=== PATIENT | male | born 1945 | race Caucasian/White ===

== ENCOUNTER 2018-06-05 13:09 | Outpatient (CLI) | payer MEDICARE, OTHER, SELFPAY ==
--- NOTE | 2018-06-05 12:59 | DI.RAD_ITS ---
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 There is a small rounded density projected over the left lower lobe which is likely calcified and represents an old healed granuloma. No mass is identified. No pleural effusion. The heart is enlarged. There is some questionable prominence of the upper lobe vasculature raising the possibility of pulmonary venous hypertension. A ligia cath is noted, the tip ending in the mid to distal superior vena cava. There are apparent old compression fractures involving the mid and lower dorsal spine. SUMMARY: Cardiomegaly, question pulmonary venous hypertension. No evidence of overt congestive failure or pneumonia.
== END 2018-06-05 13:29 ==
PROVIDERS: PCP Family Medicine; Visit Provider Nurse Practitioner Family
DX: C90.02 Multiple myeloma in relapse (principal); R06.2 Wheezing; R05 Cough
CPT/HCPCS: 71046

== ENCOUNTER 2018-06-07 00:43 | Outpatient (RCR) | payer MEDICARE, OTHER, SELFPAY ==
[2018-06-05] MEDS: Normal Saline Flush 10 ML SYR IVP ×2 (07:35→12:05)
[2018-06-05 07:54] LABS: Abs Immature Grans 0.01 k/cumm (0.0-0.09); Absolute Basophil Count 0.01 k/cumm (0.0-0.2); Absolute Eosinophil Count 0.06 k/cumm (0.0-0.7); Absolute Lymphocyte Count 1.79 k/cumm (1.2-3.4); Absolute Neutrophil Count 1.16 k/cumm (1.2-6.7); Basophils % 0.3; Eosinophils % 1.7; HCT 21.2 % (40.0-50.0); Immature Grans % 0.3; Lymphocytes % 52.2; Mean Corp. HGB Concentration 32.5 g/dL (32.0-36.0); Mean Corpuscular Hemoglobin 30.7 pg (27.0-33.0); Mean Corpuscular Volume 94.2 fL (80-95); Mean Platelet Volume 11.6 fL (8.0-11.0); Monocytes % 11.7; Neutrophils % 33.8; RBC 2.25 m/cumm (4.50-6.00); RBC Distribution Width 15.7 % (11.8-14.1); White Blood Cell Count 3.43 k/cumm (4.4-10.8)
[2018-06-05 08:08] LABS: ALT 50 U/L (12-78); AST 30 U/L (15-37); Albumin 2.8 g/dL (3.4-5.0); Alkaline Phosphatase 59 U/L (46-116); Anion Gap 14.4 mmol/L (3-11); BUN 27 mg/dL (7-18); Bilirubin, Total 0.7 mg/dL (0.2-1.0); CO2 22.6 mmol/L (21.0-32.0); CREATININE 0.99 mg/dL (0.70-1.30); Calcium 8.6 mg/dL (8.5-10.1); Chloride 100 mmol/L (98-107); Glucose 172 mg/dL (70-100); Potassium 4.3 mmol/L (3.5-5.1); Sodium 137 mmol/L (136-145); Total Protein 7.8 g/dL (6.4-8.2)
[2018-06-05 08:27] LABS: HGB 6.9 g/dL (13.5-17.5); Platelet Count 70 x1000/uL (130-400)
[2018-06-05 08:28] LABS: Anisocytosis 1+; Polychromasia Present
[2018-06-05] MEDS: Heparin 500 UNITS/5 ML SYRINGE IV (12:10)
[2018-06-07 09:41] VITALS: BP 118/86; PULSE 137; RESP 18; TEMP 36.6; O2SAT 99
[2018-06-07 09:56] VITALS: BP 106/78; PULSE 137; RESP 18; TEMP 36.6; O2SAT 100
[2018-06-07] MEDS: Furosemide 40 MG/4 ML VIAL IV (10:22)
[2018-06-07 10:26] VITALS: BP 132/95; PULSE 135; RESP 18; TEMP 36.6; O2SAT 100
[2018-06-07 10:48] VITALS: BP 116/86; PULSE 135; RESP 18; TEMP 36.6; O2SAT 100
[2018-06-07 11:26] VITALS: BP 124/80; PULSE 138; RESP 18; TEMP 36.7; O2SAT 100
== END 2018-06-09 23:59 | disposition home or self-care (01) ==
LOC: INF 00:43
PROVIDERS: PCP Family Medicine; Visit Provider Internal Medicine Hematology & Oncology
DX: C90.00 Multiple myeloma not having achieved remission (principal); Z45.2 Encounter for adjustment and management of vascular access device
CPT/HCPCS: 36430; 36591; 80053; 86850; 86900; 86901; 86920; 71046; 85025; 86870; 86880; 86885; 86902; 86970; J1940; P9016

== ENCOUNTER 2018-07-10 01:37 | Outpatient (RCR) | payer MEDICARE, OTHER, SELFPAY ==
[2018-06-12] MEDS: Normal Saline Flush 10 ML SYR IVP (08:25)
[2018-06-12 08:47] LABS: Abs Immature Grans 0.02 k/cumm (0.0-0.09); Absolute Basophil Count 0.01 k/cumm (0.0-0.2); Absolute Eosinophil Count 0.02 k/cumm (0.0-0.7); Absolute Monocyte Count 0.39 k/cumm (0.11-0.7); Absolute Neutrophil Count 1.82 k/cumm (1.2-6.7); Basophils % 0.3; Eosinophils % 0.7; HGB 7.5 g/dL (13.5-17.5); Immature Grans % 0.7; Mean Corp. HGB Concentration 32.6 g/dL (32.0-36.0); Mean Corpuscular Hemoglobin 30.9 pg (27.0-33.0); Mean Corpuscular Volume 94.7 fL (80-95); Mean Platelet Volume 12.8 fL (8.0-11.0); Monocytes % 13.6; Neutrophils % 63.7; RBC 2.43 m/cumm (4.50-6.00); White Blood Cell Count 2.86 k/cumm (4.4-10.8)
[2018-06-12 08:59] LABS: ALT 32 U/L (12-78); AST 22 U/L (15-37); Albumin 2.6 g/dL (3.4-5.0); Alkaline Phosphatase 86 U/L (46-116); Anion Gap 9.5 mmol/L (3-11); BUN 23 mg/dL (7-18); Bilirubin, Total 0.6 mg/dL (0.2-1.0); CO2 24.5 mmol/L (21.0-32.0); Calcium 8.3 mg/dL (8.5-10.1); Chloride 105 mmol/L (98-107); Glucose 148 mg/dL (70-100); Potassium 4.2 mmol/L (3.5-5.1); Sodium 139 mmol/L (136-145); Total Protein 6.7 g/dL (6.4-8.2)
[2018-06-12 09:08] LABS: Anisocytosis 2+; Diff Comment Diff Reviewed
[2018-06-12 09:09] LABS: Microcytosis 1+; Nucleated RBC 1 /100WBC; Poikilocytes 1+; Polychromasia Present
[2018-06-12 09:10] LABS: Platelet Count 80 x1000/uL (130-400)
[2018-06-19] MEDS: Normal Saline Flush 10 ML SYR IVP (07:10)
[2018-06-19 07:36] LABS: Abs Immature Grans 0.05 k/cumm (0.0-0.09); Absolute Basophil Count 0.02 k/cumm (0.0-0.2); Absolute Eosinophil Count 0.01 k/cumm (0.0-0.7); Absolute Lymphocyte Count 1.12 k/cumm (1.2-3.4); Absolute Monocyte Count 0.51 k/cumm (0.11-0.7); Absolute Neutrophil Count 1.56 k/cumm (1.2-6.7); Basophils % 0.6; Eosinophils % 0.3; HCT 28.9 % (40.0-50.0); HGB 9.6 g/dL (13.5-17.5); Immature Grans % 1.5; Lymphocytes % 34.3; Mean Corp. HGB Concentration 33.2 g/dL (32.0-36.0); Mean Corpuscular Hemoglobin 30.9 pg (27.0-33.0); Mean Corpuscular Volume 92.9 fL (80-95); Mean Platelet Volume 10.8 fL (8.0-11.0); Monocytes % 15.6; Neutrophils % 47.7; Platelet Count 272 x1000/uL (130-400); RBC 3.11 m/cumm (4.50-6.00); RBC Distribution Width 16.4 % (11.8-14.1); White Blood Cell Count 3.27 k/cumm (4.4-10.8)
[2018-06-19 07:53] LABS: ALT 25 U/L (12-78); AST 22 U/L (15-37); Alkaline Phosphatase 141 U/L (46-116); Anion Gap 10.1 mmol/L (3-11); BUN 26 mg/dL (7-18); Bilirubin, Total 0.7 mg/dL (0.2-1.0); CO2 26.9 mmol/L (21.0-32.0); CREATININE 1.22 mg/dL (0.70-1.30); Calcium 8.5 mg/dL (8.5-10.1); Chloride 104 mmol/L (98-107); Estimated GFR 58.07 (mL/min/1.73m2); Glucose 133 mg/dL (70-100); Potassium 3.9 mmol/L (3.5-5.1); Sodium 141 mmol/L (136-145); Total Protein 7.1 g/dL (6.4-8.2)
[2018-06-20 10:59] LABS: IgA 1050 mg/dL (85-499); IgG 222 mg/dL (610-1616); IgM 19 mg/dL (35-242); Kappa Free Light Chain 0.59 mg/dl (0.33-1.94); Lambda Free Light Chain <0.44 mg/dl (0.57-2.63)
[2018-06-20 12:52] LABS: Albumin 49.6 % (55.8-66.1); Comment SEE COMMENTS; Monoclonal Spike 13.6 %; Total Protein 6.5 g/dl (6.3-8.2)
[2018-06-26] MEDS: Normal Saline Flush 10 ML SYR IVP (07:35)
[2018-06-26 08:12] LABS: Abs Immature Grans 0.04 k/cumm (0.0-0.09); Absolute Basophil Count 0.02 k/cumm (0.0-0.2); Absolute Eosinophil Count 0.01 k/cumm (0.0-0.7); Absolute Lymphocyte Count 0.69 k/cumm (1.2-3.4); Absolute Monocyte Count 0.56 k/cumm (0.11-0.7); Absolute Neutrophil Count 5.23 k/cumm (1.2-6.7); Basophils % 0.3; Eosinophils % 0.2; HCT 31.2 % (40.0-50.0); HGB 10.1 g/dL (13.5-17.5); Immature Grans % 0.6; Lymphocytes % 10.5; Mean Corp. HGB Concentration 32.4 g/dL (32.0-36.0); Mean Corpuscular Hemoglobin 30.8 pg (27.0-33.0); Mean Corpuscular Volume 95.1 fL (80-95); Mean Platelet Volume 10.4 fL (8.0-11.0); Monocytes % 8.5; Neutrophils % 79.9; Platelet Count 284 x1000/uL (130-400); RBC 3.28 m/cumm (4.50-6.00); RBC Distribution Width 18.5 % (11.8-14.1); White Blood Cell Count 6.55 k/cumm (4.4-10.8)
[2018-06-26 08:21] LABS: ALT 26 U/L (12-78); AST 21 U/L (15-37); Albumin 3.2 g/dL (3.4-5.0); Alkaline Phosphatase 173 U/L (46-116); Anion Gap 9.7 mmol/L (3-11); BUN 18 mg/dL (7-18); Bilirubin, Total 1.1 mg/dL (0.2-1.0); CO2 26.3 mmol/L (21.0-32.0); CREATININE 0.95 mg/dL (0.70-1.30); Calcium 8.1 mg/dL (8.5-10.1); Chloride 106 mmol/L (98-107); Glucose 130 mg/dL (70-100); Potassium 4.3 mmol/L (3.5-5.1); Sodium 142 mmol/L (136-145); Total Protein 6.7 g/dL (6.4-8.2)
[2018-06-27 11:23] LABS: Kappa Free Light Chain 0.54 mg/dl (0.33-1.94); Lambda Free Light Chain <0.44 mg/dl (0.57-2.63)
[2018-06-27 11:40] LABS: IgA 886 mg/dL (85-499); IgG 205 mg/dL (610-1616); IgM 15 mg/dL (35-242)
[2018-06-27 13:23] LABS: Monoclonal Spike 10.8 %; Total Protein 6.4 g/dl (6.3-8.2)
[2018-07-03] MEDS: Normal Saline Flush 10 ML SYR IVP (07:00)
[2018-07-03 07:29] LABS: Abs Immature Grans 0.08 k/cumm (0.0-0.09); Absolute Basophil Count 0.01 k/cumm (0.0-0.2); Absolute Eosinophil Count 0.02 k/cumm (0.0-0.7); Absolute Lymphocyte Count 0.93 k/cumm (1.2-3.4); Absolute Monocyte Count 1.26 k/cumm (0.11-0.7); Absolute Neutrophil Count 5.82 k/cumm (1.2-6.7); Basophils % 0.1; Eosinophils % 0.2; HCT 28.4 % (40.0-50.0); Lymphocytes % 11.5; Mean Corp. HGB Concentration 31.7 g/dL (32.0-36.0); Mean Corpuscular Hemoglobin 30.6 pg (27.0-33.0); Mean Corpuscular Volume 96.6 fL (80-95); Mean Platelet Volume 11.2 fL (8.0-11.0); Monocytes % 15.5; Neutrophils % 71.7; Platelet Count 187 x1000/uL (130-400); RBC 2.94 m/cumm (4.50-6.00); RBC Distribution Width 18.9 % (11.8-14.1); White Blood Cell Count 8.12 k/cumm (4.4-10.8)
[2018-07-03 07:41] LABS: ALT 22 U/L (12-78); AST 16 U/L (15-37); Albumin 2.9 g/dL (3.4-5.0); Alkaline Phosphatase 137 U/L (46-116); Anion Gap 10.9 mmol/L (3-11); BUN 20 mg/dL (7-18); Bilirubin, Total 1.2 mg/dL (0.2-1.0); CO2 26.1 mmol/L (21.0-32.0); CREATININE 0.86 mg/dL (0.70-1.30); Calcium 8.6 mg/dL (8.5-10.1); Chloride 100 mmol/L (98-107); Glucose 161 mg/dL (70-100); Potassium 4.2 mmol/L (3.5-5.1); Sodium 137 mmol/L (136-145); Total Protein 6.5 g/dL (6.4-8.2)
== END 2018-07-10 23:59 | disposition home or self-care (01) ==
LOC: INF 01:37
PROVIDERS: PCP Family Medicine; Visit Provider Internal Medicine Hematology & Oncology
DX: C90.00 Multiple myeloma not having achieved remission (principal); Z45.2 Encounter for adjustment and management of vascular access device
CPT/HCPCS: 36591; 80053; 82784; 86850; 86900; 86901; 86920; 86970; 83883; 84165; 85025; 86870; 86880; 86885; 86902

== ENCOUNTER 2018-08-09 00:49 | Outpatient (RCR) | payer MEDICARE, OTHER, SELFPAY ==
[2018-07-17] MEDS: Normal Saline Flush 10 ML SYR IVP (07:30)
[2018-07-17 07:55] LABS: Abs Immature Grans 0.04 k/cumm (0.0-0.09); Absolute Basophil Count 0.06 k/cumm (0.0-0.2); Absolute Eosinophil Count 0.12 k/cumm (0.0-0.7); Absolute Lymphocyte Count 1.59 k/cumm (1.2-3.4); Absolute Neutrophil Count 4.74 k/cumm (1.2-6.7); Basophils % 0.8; Eosinophils % 1.6; HCT 34.7 % (40.0-50.0); Immature Grans % 0.5; Lymphocytes % 21.6; Mean Corp. HGB Concentration 31.7 g/dL (32.0-36.0); Mean Corpuscular Hemoglobin 30.1 pg (27.0-33.0); Mean Corpuscular Volume 95.1 fL (80-95); Mean Platelet Volume 10.5 fL (8.0-11.0); Monocytes % 10.9; Neutrophils % 64.6; Platelet Count 306 x1000/uL (130-400); RBC 3.65 m/cumm (4.50-6.00); RBC Distribution Width 18.8 % (11.8-14.1); White Blood Cell Count 7.35 k/cumm (4.4-10.8)
[2018-07-17 08:07] LABS: ALT 31 U/L (12-78); AST 23 U/L (15-37); Albumin 3.4 g/dL (3.4-5.0); Alkaline Phosphatase 123 U/L (46-116); Anion Gap 11.3 mmol/L (3-11); BUN 18 mg/dL (7-18); Bilirubin, Total 1.2 mg/dL (0.2-1.0); CO2 25.7 mmol/L (21.0-32.0); CREATININE 0.87 mg/dL (0.70-1.30); Calcium 9.1 mg/dL (8.5-10.1); Chloride 102 mmol/L (98-107); Glucose 136 mg/dL (70-100); LDH 215 U/L (85-227); Potassium 3.9 mmol/L (3.5-5.1); Sodium 139 mmol/L (136-145); Total Protein 6.8 g/dL (6.4-8.2)
[2018-08-09] MEDS: Normal Saline Flush 10 ML SYR IVP (08:22)
[2018-08-09] MEDS: Heparin 500 UNITS/5 ML SYRINGE IV (08:23)
[2018-08-09 09:27] LABS: ALT 26 U/L (12-78); AST 20 U/L (15-37); Albumin 3.3 g/dL (3.4-5.0); Alkaline Phosphatase 84 U/L (46-116); Anion Gap 10.2 mmol/L (3-11); BUN 14 mg/dL (7-18); CO2 25.8 mmol/L (21.0-32.0); CREATININE 0.89 mg/dL (0.70-1.30); Calcium 8.8 mg/dL (8.5-10.1); Chloride 103 mmol/L (98-107); Glucose 185 mg/dL (70-100); Potassium 4.4 mmol/L (3.5-5.1); Sodium 139 mmol/L (136-145); Total Protein 6.7 g/dL (6.4-8.2)
[2018-08-09 09:39] LABS: HCT 34.8 % (40.0-50.0); HGB 11.1 g/dL (13.5-17.5); Lymphocytes % 14.7; Mean Corp. HGB Concentration 31.9 g/dL (32.0-36.0); Mean Corpuscular Hemoglobin 30.4 pg (27.0-33.0); Mean Corpuscular Volume 95.3 fL (80-95); Neutrophils % 68.3; Platelet Count 215 x1000/uL (130-400); RBC 3.65 m/cumm (4.50-6.00); RBC Distribution Width 18.5 % (11.8-14.1)
[2018-08-09 09:40] LABS: Abs Immature Grans 0.06 k/cumm (0.0-0.09); Absolute Basophil Count 0.04 k/cumm (0.0-0.2); Absolute Eosinophil Count 0.13 k/cumm (0.0-0.7); Absolute Lymphocyte Count 0.75 k/cumm (1.2-3.4); Absolute Monocyte Count 0.64 k/cumm (0.11-0.7); Absolute Neutrophil Count 3.48 k/cumm (1.2-6.7); Basophils % 0.8; Eosinophils % 2.5; Immature Grans % 1.2; Monocytes % 12.5
[2018-08-09 09:41] LABS: Anisocytosis 2+; Hypochromasia 2+; Macrocytosis 1+; Microcytosis 2+; Polychromasia Present; Schistocytes 2+
[2018-08-12 08:53] LABS: PSA, Screening 0.2 ng/ml (0-6.5)
[2018-08-12 10:43] LABS: IgA 631 mg/dL (85-499); IgG 192 mg/dL (610-1616); IgM 14 mg/dL (35-242); Lambda Free Light Chain <0.44 mg/dl (0.57-2.63)
[2018-08-12 13:56] LABS: Albumin 56.7 % (55.8-66.1); Monoclonal Spike 6.5 %
== END 2018-08-09 23:59 | disposition home or self-care (01) ==
LOC: INF 00:49
PROVIDERS: PCP Family Medicine; Visit Provider Internal Medicine Hematology & Oncology
DX: C90.00 Multiple myeloma not having achieved remission (principal); Z12.5 Encounter for screening for malignant neoplasm of prostate; Z45.2 Encounter for adjustment and management of vascular access device
CPT/HCPCS: 36591; 80053; 82784; 84153; 86900; 86901; 83615; 83883; 84165; 85025

== ENCOUNTER 2018-09-25 01:37 | Outpatient (RCR) | payer MEDICARE, OTHER, SELFPAY ==
[2018-09-13] MEDS: Normal Saline Flush 10 ML SYR IVP (09:55)
[2018-09-13] MEDS: Heparin 500 UNITS/5 ML SYRINGE IV (09:55)
[2018-09-16 11:38] LABS: IgA 1172 mg/dL (85-499); IgG 150 mg/dL (610-1616); IgM 12 mg/dL (35-242); Lambda Free Light Chain <0.44 mg/dl (0.57-2.63)
[2018-09-16 13:38] LABS: Albumin 47.8 % (55.8-66.1); Monoclonal Spike 13.5 %; Total Protein 6.5 g/dl (6.3-8.2)
== END 2018-10-10 23:59 | disposition home or self-care (01) ==
LOC: INF 01:37
PROVIDERS: PCP Family Medicine; Visit Provider Internal Medicine Hematology & Oncology
DX: C90.00 Multiple myeloma not having achieved remission (principal); Z45.2 Encounter for adjustment and management of vascular access device
CPT/HCPCS: 36591; 82784; 83883; 84165

== ENCOUNTER 2018-10-16 01:42 | Outpatient (RCR) | payer MEDICARE, OTHER, SELFPAY ==
[2018-10-11] MEDS: Heparin 500 UNITS/5 ML SYRINGE IV (10:03)
[2018-10-11] MEDS: Normal Saline Flush 10 ML SYR IVP (10:03)
[2018-10-11 10:12] LABS: Abs Immature Grans 0.33 k/cumm (0.0-0.09); Absolute Monocyte Count 0.73 k/cumm (0.11-0.7); HCT 31.6 % (40.0-50.0); HGB 10.1 g/dL (13.5-17.5); Mean Corpuscular Hemoglobin 30.2 pg (27.0-33.0); Mean Corpuscular Volume 94.6 fL (80-95); Mean Platelet Volume 10.5 fL (8.0-11.0); Platelet Count 234 x1000/uL (130-400); RBC 3.34 m/cumm (4.50-6.00); RBC Distribution Width 19.3 % (11.8-14.1); White Blood Cell Count 7.34 k/cumm (4.4-10.8)
[2018-10-11 10:26] LABS: ALT 28 U/L (12-78); AST 17 U/L (15-37); Albumin 2.9 g/dL (3.4-5.0); Alkaline Phosphatase 69 U/L (46-116); Anion Gap 14.7 mmol/L (3-11); BUN 19 mg/dL (7-18); Bilirubin, Total 0.8 mg/dL (0.2-1.0); CO2 21.3 mmol/L (21.0-32.0); CREATININE 1.04 mg/dL (0.70-1.30); Calcium 8.5 mg/dL (8.5-10.1); Chloride 104 mmol/L (98-107); Glucose 249 mg/dL (70-100); Potassium 3.9 mmol/L (3.5-5.1); Sodium 140 mmol/L (136-145); Total Protein 6.8 g/dL (6.4-8.2)
[2018-10-11 10:28] LABS: Absolute Lymphocyte Count 0.73 k/cumm (1.2-3.4); Absolute Neutrophil Count 5.87 k/cumm (1.2-6.7)
[2018-10-11 10:29] LABS: Diff Comment Manual Differential; RBC Morphology Normal
[2018-10-14 10:59] LABS: IgA 367 mg/dL (85-499); IgG 138 mg/dL (610-1616); IgM <12 mg/dL (35-242); Kappa Free Light Chain 0.21 mg/dl (0.33-1.94); Lambda Free Light Chain <0.44 mg/dl (0.57-2.63)
[2018-10-14 13:18] LABS: Albumin 55.6 % (55.8-66.1); Monoclonal Spike 3.7 %; Total Protein 5.7 g/dl (6.3-8.2)
== END 2018-11-07 23:59 | disposition home or self-care (01) ==
LOC: INF 01:42
PROVIDERS: PCP Family Medicine; Visit Provider Internal Medicine Hematology & Oncology
DX: C90.00 Multiple myeloma not having achieved remission (principal); Z45.2 Encounter for adjustment and management of vascular access device
CPT/HCPCS: 36591; 80053; 82784; 83883; 84165; 85025

== ENCOUNTER 2018-12-04 02:07 | Outpatient (RCR) | payer MEDICARE, OTHER, SELFPAY ==
[2018-11-13] MEDS: Normal Saline Flush 10 ML SYR IVP (07:30)
[2018-11-13 07:55] LABS: Abs Immature Grans 0.12 k/cumm (0.0-0.09); Absolute Basophil Count 0.07 k/cumm (0.0-0.2); Absolute Eosinophil Count 0.12 k/cumm (0.0-0.7); Absolute Lymphocyte Count 1.66 k/cumm (1.2-3.4); Absolute Monocyte Count 0.71 k/cumm (0.11-0.7); Absolute Neutrophil Count 4.53 k/cumm (1.2-6.7); Eosinophils % 1.7; HCT 29.5 % (40.0-50.0); HGB 9.1 g/dL (13.5-17.5); Immature Grans % 1.7; Mean Corp. HGB Concentration 30.8 g/dL (32.0-36.0); Mean Corpuscular Hemoglobin 28.9 pg (27.0-33.0); Mean Corpuscular Volume 93.7 fL (80-95); Mean Platelet Volume 10.7 fL (8.0-11.0); Monocytes % 9.8; Neutrophils % 62.8; Platelet Count 322 x1000/uL (130-400); RBC 3.15 m/cumm (4.50-6.00); RBC Distribution Width 18.4 % (11.8-14.1); White Blood Cell Count 7.21 k/cumm (4.4-10.8)
[2018-11-13 08:02] LABS: ALT 20 U/L (12-78); AST 31 U/L (15-37); Alkaline Phosphatase 82 U/L (46-116); Anion Gap 11.7 mmol/L (3-11); BUN 17 mg/dL (7-18); Bilirubin, Total 0.7 mg/dL (0.2-1.0); CO2 26.3 mmol/L (21.0-32.0); CREATININE 1.01 mg/dL (0.70-1.30); Chloride 104 mmol/L (98-107); Digoxin 0.72 ng/mL (0.90-2.00); Glucose 137 mg/dL (70-100); Potassium 3.8 mmol/L (3.5-5.1); Sodium 142 mmol/L (136-145); Total Protein 7.6 g/dL (6.4-8.2)
[2018-11-13 08:25] LABS: Anisocytosis 3+; Diff Comment RBC Morph Reviewed; Macrocytosis 1+; Microcytosis 2+; Polychromasia Present
[2018-11-13 08:26] LABS: Hypochromasia 1+
[2018-11-13 08:27] LABS: Poikilocytes 2+
[2018-11-14 11:32] LABS: PSA, Diagnostic 0.2 ng/ml (0-6.5)
[2018-11-27] MEDS: Normal Saline Flush 10 ML SYR IVP (09:20)
[2018-11-27 09:53] LABS: Abs Immature Grans 0.01 k/cumm (0.0-0.09); Absolute Eosinophil Count 0.01 k/cumm (0.0-0.7); Absolute Lymphocyte Count 0.86 k/cumm (1.2-3.4); Absolute Monocyte Count 0.23 k/cumm (0.11-0.7); Absolute Neutrophil Count 1.48 k/cumm (1.2-6.7); Eosinophils % 0.4; HCT 28.8 % (40.0-50.0); HGB 9.3 g/dL (13.5-17.5); Immature Grans % 0.4; Lymphocytes % 33.2; Mean Corp. HGB Concentration 32.3 g/dL (32.0-36.0); Mean Corpuscular Hemoglobin 29.6 pg (27.0-33.0); Mean Corpuscular Volume 91.7 fL (80-95); Monocytes % 8.9; RBC 3.14 m/cumm (4.50-6.00); RBC Distribution Width 19.2 % (11.8-14.1); White Blood Cell Count 2.59 k/cumm (4.4-10.8)
[2018-11-27 10:06] LABS: ALT 22 U/L (12-78); AST 117 U/L (15-37); Albumin 2.7 g/dL (3.4-5.0); Alkaline Phosphatase 54 U/L (46-116); Anion Gap 13.7 mmol/L (3-11); BUN 26 mg/dL (7-18); Bilirubin, Total 0.7 mg/dL (0.2-1.0); CO2 23.3 mmol/L (21.0-32.0); Calcium 7.7 mg/dL (8.5-10.1); Chloride 101 mmol/L (98-107); Estimated GFR 59.02 (mL/min/1.73m2); Glucose 172 mg/dL (70-100); Potassium 3.5 mmol/L (3.5-5.1); Sodium 138 mmol/L (136-145); Total Protein 6.5 g/dL (6.4-8.2)
[2018-11-27 10:09] LABS: Platelet Count 83 x1000/uL (130-400)
[2018-11-27 10:10] LABS: Anisocytosis 2+; Basophilic Stippling Present; Neutrophils % 57.1; Polychromasia Present
[2018-11-27 10:11] LABS: Poikilocytes 1+
[2018-12-04] MEDS: Normal Saline Flush 10 ML SYR IVP (08:05)
[2018-12-04 08:37] LABS: Abs Immature Grans 0.01 k/cumm (0.0-0.09); Absolute Basophil Count 0.01 k/cumm (0.0-0.2); Absolute Eosinophil Count 0.06 k/cumm (0.0-0.7); Absolute Lymphocyte Count 0.63 k/cumm (1.2-3.4); Absolute Neutrophil Count 1.22 k/cumm (1.2-6.7); Basophils % 0.4; Eosinophils % 2.6; HCT 29.8 % (40.0-50.0); HGB 9.6 g/dL (13.5-17.5); Immature Grans % 0.4; Mean Corp. HGB Concentration 32.2 g/dL (32.0-36.0); Mean Corpuscular Hemoglobin 29.3 pg (27.0-33.0); Mean Corpuscular Volume 90.9 fL (80-95); Mean Platelet Volume 9.7 fL (8.0-11.0); Monocytes % 17.2; Neutrophils % 52.4; Platelet Count 160 x1000/uL (130-400); RBC 3.28 m/cumm (4.50-6.00); RBC Distribution Width 19.2 % (11.8-14.1); White Blood Cell Count 2.33 k/cumm (4.4-10.8)
[2018-12-04 08:50] LABS: ALT 23 U/L (12-78); AST 21 U/L (15-37); Alkaline Phosphatase 64 U/L (46-116); Anion Gap 12.7 mmol/L (3-11); BUN 13 mg/dL (7-18); Bilirubin, Total 0.7 mg/dL (0.2-1.0); CO2 25.3 mmol/L (21.0-32.0); CREATININE 1.07 mg/dL (0.70-1.30); Chloride 104 mmol/L (98-107); Glucose 131 mg/dL (70-100); Potassium 3.7 mmol/L (3.5-5.1); Sodium 142 mmol/L (136-145); Total Protein 6.2 g/dL (6.4-8.2)
[2018-12-04 08:55] LABS: Anisocytosis 2+; Microcytosis 2+; Polychromasia Present
[2018-12-04 08:56] LABS: Poikilocytes 2+
[2018-12-05 11:27] LABS: PSA, Screening <0.1 ng/ml (0-6.5)
[2018-12-05 11:54] LABS: Monoclonal Spike 8.4 %; Total Protein 5.9 g/dl (6.3-8.2)
[2018-12-05 13:46] LABS: IgA 628 mg/dL (85-499); IgG 434 mg/dL (610-1616); IgM <12 mg/dL (35-242); Kappa Free Light Chain 0.38 mg/dl (0.33-1.94); Lambda Free Light Chain <0.44 mg/dl (0.57-2.63)
== END 2018-12-08 23:59 | disposition home or self-care (01) ==
LOC: INF 02:07
PROVIDERS: PCP Family Medicine; Visit Provider Internal Medicine Hematology & Oncology
DX: C90.00 Multiple myeloma not having achieved remission (principal); C61 Malignant neoplasm of prostate; I50.41 Acute combined systolic (congestive) and diastolic (congestive) heart failure; Z45.2 Encounter for adjustment and management of vascular access device
CPT/HCPCS: 36591; 80053; 82784; 84153; 86900; 86901; 80162; 83883; 84165; 85025

== ENCOUNTER 2019-01-01 01:49 | Outpatient (RCR) | payer MEDICARE, OTHER, SELFPAY ==
[2018-12-11] MEDS: Normal Saline Flush 10 ML SYR IVP (08:29)
[2018-12-11 08:32] LABS: HCT 29.3 % (40.0-50.0); HGB 9.3 g/dL (13.5-17.5); Mean Corp. HGB Concentration 31.7 g/dL (32.0-36.0); Mean Corpuscular Hemoglobin 28.8 pg (27.0-33.0); Mean Corpuscular Volume 90.7 fL (80-95); Mean Platelet Volume 10.4 fL (8.0-11.0); Platelet Count 159 x1000/uL (130-400); RBC 3.23 m/cumm (4.50-6.00); RBC Distribution Width 18.5 % (11.8-14.1)
[2018-12-11 08:41] LABS: ALT 17 U/L (12-78); AST 17 U/L (15-37); Albumin 2.6 g/dL (3.4-5.0); Alkaline Phosphatase 81 U/L (46-116); Anion Gap 9.8 mmol/L (3-11); BUN 14 mg/dL (7-18); CO2 25.2 mmol/L (21.0-32.0); CREATININE 0.84 mg/dL (0.70-1.30); Calcium 7.9 mg/dL (8.5-10.1); Chloride 104 mmol/L (98-107); Glucose 167 mg/dL (70-100); Potassium 3.8 mmol/L (3.5-5.1); Sodium 139 mmol/L (136-145)
[2018-12-11 08:48] LABS: Absolute Lymphocyte Count 0.22 k/cumm (1.2-3.4); Absolute Monocyte Count 0.18 k/cumm (0.11-0.7); Atypical Lymphocytes % 2
[2018-12-11 08:50] LABS: White Blood Cell Count 0.94 k/cumm (4.4-10.8)
[2018-12-11 08:51] LABS: Absolute Neutrophil Count 0.54 k/cumm (1.2-6.7); Anisocytosis 2+; Diff Comment Manual Differential
[2018-12-11 08:52] LABS: Microcytosis 2+; Poikilocytes 2+; Polychromasia Present
[2018-12-18] MEDS: Normal Saline Flush 10 ML SYR IVP (08:15)
[2018-12-18 09:00] LABS: Abs Immature Grans 0.06 k/cumm (0.0-0.09); HCT 31.6 % (40.0-50.0); HGB 9.8 g/dL (13.5-17.5); Mean Corpuscular Hemoglobin 28.3 pg (27.0-33.0); Mean Corpuscular Volume 91.3 fL (80-95); Mean Platelet Volume 10.5 fL (8.0-11.0); Platelet Count 281 x1000/uL (130-400); RBC 3.46 m/cumm (4.50-6.00); RBC Distribution Width 18.6 % (11.8-14.1); White Blood Cell Count 3.12 k/cumm (4.4-10.8)
[2018-12-18 09:15] LABS: ALT 19 U/L (12-78); AST 19 U/L (15-37); Albumin 2.9 g/dL (3.4-5.0); Alkaline Phosphatase 89 U/L (46-116); Anion Gap 9.3 mmol/L (3-11); BUN 17 mg/dL (7-18); Bilirubin, Total 0.9 mg/dL (0.2-1.0); CO2 26.7 mmol/L (21.0-32.0); CREATININE 0.81 mg/dL (0.70-1.30); Calcium 8.2 mg/dL (8.5-10.1); Chloride 106 mmol/L (98-107); Glucose 84 mg/dL (70-100); Potassium 3.8 mmol/L (3.5-5.1); Sodium 142 mmol/L (136-145); Total Protein 6.1 g/dL (6.4-8.2)
[2018-12-18 09:40] LABS: Absolute Neutrophil Count 1.59 k/cumm (1.2-6.7)
[2018-12-18 09:41] LABS: Absolute Basophil Count 0.06 k/cumm (0.0-0.2); Absolute Eosinophil Count 0.06 k/cumm (0.0-0.7); Absolute Lymphocyte Count 0.69 k/cumm (1.2-3.4); Absolute Monocyte Count 0.66 k/cumm (0.11-0.7); Anisocytosis 2+; Atypical Lymphocytes % 3; Diff Comment Manual Differential; Hypochromasia 2+; Microcytosis 2+; Nucleated RBC 1 /100WBC
[2018-12-18 09:42] LABS: Poikilocytes 2+; Polychromasia Present
[2018-12-25] MEDS: Normal Saline Flush 10 ML SYR IVP (09:10)
[2018-12-25 10:10] LABS: Abs Immature Grans 0.05 k/cumm (0.0-0.09); Absolute Basophil Count 0.09 k/cumm (0.0-0.2); Absolute Eosinophil Count 0.18 k/cumm (0.0-0.7); Absolute Lymphocyte Count 0.85 k/cumm (1.2-3.4); Absolute Monocyte Count 0.28 k/cumm (0.11-0.7); Basophils % 2.3; Eosinophils % 4.6; HCT 35.7 % (40.0-50.0); HGB 11.1 g/dL (13.5-17.5); Immature Grans % 1.3; Lymphocytes % 21.5; Mean Corp. HGB Concentration 31.1 g/dL (32.0-36.0); Mean Corpuscular Hemoglobin 28.5 pg (27.0-33.0); Mean Corpuscular Volume 91.8 fL (80-95); Mean Platelet Volume 10.6 fL (8.0-11.0); Monocytes % 7.1; Neutrophils % 63.2; Platelet Count 382 x1000/uL (130-400); RBC 3.89 m/cumm (4.50-6.00); RBC Distribution Width 18.9 % (11.8-14.1); White Blood Cell Count 3.95 k/cumm (4.4-10.8)
[2018-12-25 10:21] LABS: ALT 24 U/L (12-78); AST 24 U/L (15-37); Albumin 3.2 g/dL (3.4-5.0); Alkaline Phosphatase 89 U/L (46-116); BUN 15 mg/dL (7-18); Bilirubin, Total 0.7 mg/dL (0.2-1.0); Calcium 8.4 mg/dL (8.5-10.1); Chloride 104 mmol/L (98-107); Glucose 114 mg/dL (70-100); Potassium 3.2 mmol/L (3.5-5.1); Sodium 142 mmol/L (136-145); Total Protein 6.6 g/dL (6.4-8.2)
[2019-01-01 10:47] LABS: Abs Immature Grans 0.01 k/cumm (0.0-0.09); Absolute Basophil Count 0.26 k/cumm (0.0-0.2); Absolute Eosinophil Count 0.16 k/cumm (0.0-0.7); Absolute Lymphocyte Count 1.32 k/cumm (1.2-3.4); Absolute Monocyte Count 1.32 k/cumm (0.11-0.7); Absolute Neutrophil Count 3.94 k/cumm (1.2-6.7); Basophils % 3.7; Eosinophils % 2.3; HCT 34.7 % (40.0-50.0); HGB 11.1 g/dL (13.5-17.5); Immature Grans % 0.1; Lymphocytes % 18.8; Mean Corpuscular Hemoglobin 29.2 pg (27.0-33.0); Mean Corpuscular Volume 91.3 fL (80-95); Mean Platelet Volume 9.7 fL (8.0-11.0); Monocytes % 18.8; Neutrophils % 56.3; RBC Distribution Width 19.6 % (11.8-14.1); White Blood Cell Count 7.01 k/cumm (4.4-10.8)
[2019-01-01 11:06] LABS: Platelet Count 266 x1000/uL (130-400)
[2019-01-01 11:07] LABS: ALT 26 U/L (12-78); AST 19 U/L (15-37); Albumin 3.3 g/dL (3.4-5.0); Alkaline Phosphatase 76 U/L (46-116); Anisocytosis 2+; BUN 20 mg/dL (7-18); Bilirubin, Total 0.7 mg/dL (0.2-1.0); CREATININE 0.87 mg/dL (0.70-1.30); Calcium 8.3 mg/dL (8.5-10.1); Chloride 105 mmol/L (98-107); Diff Comment RBC Morph Reviewed; Glucose 101 mg/dL (70-100); Microcytosis 1+; Polychromasia Present; Sodium 141 mmol/L (136-145); Total Protein 6.4 g/dL (6.4-8.2)
[2019-01-01 11:09] LABS: Poikilocytes 2+
[2019-01-02 11:14] LABS: IgA 230 mg/dL (85-499); IgG 535 mg/dL (610-1616); IgM <12 mg/dL (35-242); Kappa Free Light Chain 0.39 mg/dl (0.33-1.94); Lambda Free Light Chain <0.44 mg/dl (0.57-2.63)
[2019-01-02 15:40] LABS: Albumin 60.9 % (55.8-66.1); Monoclonal Spike SEE COMMENTS %
[2019-01-03 13:57] LABS: Immunotyping, Serum Interpretation:
== END 2019-01-07 23:59 | disposition home or self-care (01) ==
LOC: INF 01:49
PROVIDERS: PCP Family Medicine; Visit Provider Internal Medicine Hematology & Oncology
DX: C90.00 Multiple myeloma not having achieved remission (principal); Z45.2 Encounter for adjustment and management of vascular access device
CPT/HCPCS: 36591; 80053; 82784; 83883; 84165; 85025; 86320

== ENCOUNTER 2019-01-29 02:06 | Outpatient (RCR) | payer MEDICARE, OTHER, SELFPAY ==
[2019-01-08] MEDS: Normal Saline Flush 10 ML SYR IVP (08:05)
[2019-01-08 08:39] LABS: Abs Immature Grans 0.07 k/cumm (0.0-0.09); Absolute Basophil Count 0.15 k/cumm (0.0-0.2); Absolute Monocyte Count 0.35 k/cumm (0.11-0.7); Absolute Neutrophil Count 2.61 k/cumm (1.2-6.7); Basophils % 3.2; Eosinophils % 12.8; HCT 37.9 % (40.0-50.0); HGB 12.1 g/dL (13.5-17.5); Immature Grans % 1.5; Lymphocytes % 19.2; Mean Corp. HGB Concentration 31.9 g/dL (32.0-36.0); Mean Corpuscular Hemoglobin 29.3 pg (27.0-33.0); Mean Corpuscular Volume 91.8 fL (80-95); Mean Platelet Volume 11.3 fL (8.0-11.0); Monocytes % 7.5; Neutrophils % 55.8; Platelet Count 150 x1000/uL (130-400); RBC 4.13 m/cumm (4.50-6.00); RBC Distribution Width 19.8 % (11.8-14.1); White Blood Cell Count 4.68 k/cumm (4.4-10.8)
[2019-01-08 09:03] LABS: ALT 26 U/L (12-78); AST 15 U/L (15-37); Albumin 3.2 g/dL (3.4-5.0); Alkaline Phosphatase 69 U/L (46-116); Anion Gap 11.3 mmol/L (3-11); BUN 20 mg/dL (7-18); Bilirubin, Total 0.7 mg/dL (0.2-1.0); CO2 25.7 mmol/L (21.0-32.0); CREATININE 0.95 mg/dL (0.70-1.30); Calcium 8.6 mg/dL (8.5-10.1); Chloride 105 mmol/L (98-107); Glucose 129 mg/dL (70-100); Potassium 4.2 mmol/L (3.5-5.1); Sodium 142 mmol/L (136-145); Total Protein 6.4 g/dL (6.4-8.2)
[2019-01-15] MEDS: Normal Saline Flush 10 ML SYR IVP (08:17)
[2019-01-15 08:36] LABS: Abs Immature Grans 0.03 k/cumm (0.0-0.09); Absolute Monocyte Count 0.65 k/cumm (0.11-0.7); HCT 36.4 % (40.0-50.0); HGB 11.6 g/dL (13.5-17.5); Mean Corp. HGB Concentration 31.9 g/dL (32.0-36.0); Mean Corpuscular Hemoglobin 29.4 pg (27.0-33.0); Mean Corpuscular Volume 92.2 fL (80-95); Mean Platelet Volume 10.4 fL (8.0-11.0); Platelet Count 246 x1000/uL (130-400); RBC 3.95 m/cumm (4.50-6.00); RBC Distribution Width 19.5 % (11.8-14.1); White Blood Cell Count 5.03 k/cumm (4.4-10.8)
[2019-01-15 08:49] LABS: ALT 20 U/L (12-78); AST 12 U/L (15-37); Albumin 3.2 g/dL (3.4-5.0); Alkaline Phosphatase 63 U/L (46-116); Anion Gap 11.4 mmol/L (3-11); BUN 21 mg/dL (7-18); Bilirubin, Total 0.7 mg/dL (0.2-1.0); CO2 24.6 mmol/L (21.0-32.0); CREATININE 1.05 mg/dL (0.70-1.30); Calcium 8.5 mg/dL (8.5-10.1); Chloride 106 mmol/L (98-107); Glucose 145 mg/dL (70-100); Potassium 3.7 mmol/L (3.5-5.1); Sodium 142 mmol/L (136-145); Total Protein 6.2 g/dL (6.4-8.2)
[2019-01-15 08:57] LABS: Absolute Eosinophil Count 0.45 k/cumm (0.0-0.7); Absolute Neutrophil Count 3.22 k/cumm (1.2-6.7); Anisocytosis 3+; Atypical Lymphocytes % 3; Diff Comment Manual Differential
[2019-01-15 08:58] LABS: Macrocytosis 1+; Microcytosis 1+; Ovalocytes 2+; Poikilocytes 2+; Polychromasia Present
[2019-01-22] MEDS: Normal Saline Flush 10 ML SYR IVP (08:47)
[2019-01-22 08:57] LABS: Absolute Monocyte Count 0.66 k/cumm (0.11-0.7); HCT 37.4 % (40.0-50.0); HGB 12.1 g/dL (13.5-17.5); Mean Corp. HGB Concentration 32.4 g/dL (32.0-36.0); Mean Corpuscular Hemoglobin 29.4 pg (27.0-33.0); Mean Corpuscular Volume 90.8 fL (80-95); Platelet Count 209 x1000/uL (130-400); RBC 4.12 m/cumm (4.50-6.00); RBC Distribution Width 18.9 % (11.8-14.1); White Blood Cell Count 2.74 k/cumm (4.4-10.8)
[2019-01-22 09:11] LABS: ALT 33 U/L (12-78); AST 16 U/L (15-37); Albumin 3.1 g/dL (3.4-5.0); Alkaline Phosphatase 67 U/L (46-116); Anion Gap 9.7 mmol/L (3-11); BUN 16 mg/dL (7-18); Bilirubin, Total 0.8 mg/dL (0.2-1.0); CO2 25.3 mmol/L (21.0-32.0); CREATININE 0.99 mg/dL (0.70-1.30); Calcium 8.8 mg/dL (8.5-10.1); Chloride 104 mmol/L (98-107); Glucose 113 mg/dL (70-100); Potassium 4.1 mmol/L (3.5-5.1); Sodium 139 mmol/L (136-145); Total Protein 6.7 g/dL (6.4-8.2)
[2019-01-22 09:38] LABS: Absolute Lymphocyte Count 0.66 k/cumm (1.2-3.4); Absolute Neutrophil Count 0.82 k/cumm (1.2-6.7); Other Cells 0; Promyelocytes % 0 %
[2019-01-22 09:39] LABS: Anisocytosis 2+; Diff Comment Manual Differential; Hypochromasia 2+; Polychromasia Present
[2019-01-22 09:40] LABS: Poikilocytes 2+
[2019-01-29] MEDS: Normal Saline Flush 10 ML SYR IVP (08:00)
[2019-01-29 08:25] LABS: Abs Immature Grans 0.02 k/cumm (0.0-0.09); Absolute Basophil Count 0.15 k/cumm (0.0-0.2); Absolute Eosinophil Count 0.15 k/cumm (0.0-0.7); Absolute Lymphocyte Count 1.07 k/cumm (1.2-3.4); Absolute Monocyte Count 1.13 k/cumm (0.11-0.7); HCT 35.1 % (40.0-50.0); HGB 11.2 g/dL (13.5-17.5); Immature Grans % 0.4; Lymphocytes % 21.3; Mean Corp. HGB Concentration 31.9 g/dL (32.0-36.0); Mean Corpuscular Volume 90.9 fL (80-95); Monocytes % 22.5; Neutrophils % 49.8; Platelet Count 335 x1000/uL (130-400); RBC 3.86 m/cumm (4.50-6.00); RBC Distribution Width 18.8 % (11.8-14.1); White Blood Cell Count 5.02 k/cumm (4.4-10.8)
[2019-01-29 08:38] LABS: ALT 20 U/L (12-78); AST 17 U/L (15-37); Albumin 3.1 g/dL (3.4-5.0); Alkaline Phosphatase 57 U/L (46-116); Anion Gap 9.4 mmol/L (3-11); BUN 17 mg/dL (7-18); Bilirubin, Total 0.7 mg/dL (0.2-1.0); CO2 26.6 mmol/L (21.0-32.0); CREATININE 0.87 mg/dL (0.70-1.30); Calcium 8.6 mg/dL (8.5-10.1); Chloride 105 mmol/L (98-107); Glucose 89 mg/dL (70-100); Potassium 4.1 mmol/L (3.5-5.1); Sodium 141 mmol/L (136-145); Total Protein 6.5 g/dL (6.4-8.2)
[2019-01-30 11:11] LABS: IgA 196 mg/dL (85-499); IgG 534 mg/dL (610-1616); IgM <12 mg/dL (35-242); Kappa Free Light Chain 0.46 mg/dl (0.33-1.94); Lambda Free Light Chain <0.44 mg/dl (0.57-2.63)
[2019-01-30 15:49] LABS: Monoclonal Spike SEE COMMENTS %; Total Protein 5.8 g/dl (6.3-8.2)
== END 2019-02-07 23:59 | disposition home or self-care (01) ==
LOC: INF 02:06
PROVIDERS: PCP Family Medicine; Visit Provider Internal Medicine Hematology & Oncology
DX: C90.00 Multiple myeloma not having achieved remission (principal); Z45.2 Encounter for adjustment and management of vascular access device
CPT/HCPCS: 36591; 80053; 82784; 83883; 84165; 85025

== ENCOUNTER 2019-02-26 01:06 | Outpatient (RCR) | payer MEDICARE, OTHER, SELFPAY ==
[2019-02-12] MEDS: Normal Saline Flush 10 ML SYR IVP (08:07)
[2019-02-12 08:20] LABS: Abs Immature Grans 0.05 k/cumm (0.0-0.09); Absolute Basophil Count 0.14 k/cumm (0.0-0.2); Absolute Eosinophil Count 0.12 k/cumm (0.0-0.7); Absolute Lymphocyte Count 0.77 k/cumm (1.2-3.4); Absolute Monocyte Count 0.78 k/cumm (0.11-0.7); Absolute Neutrophil Count 3.99 k/cumm (1.2-6.7); Basophils % 2.4; Eosinophils % 2.1; HGB 11.7 g/dL (13.5-17.5); Immature Grans % 0.9; Lymphocytes % 13.2; Mean Corp. HGB Concentration 32.5 g/dL (32.0-36.0); Mean Corpuscular Hemoglobin 29.3 pg (27.0-33.0); Mean Platelet Volume 11.6 fL (8.0-11.0); Monocytes % 13.3; Neutrophils % 68.1; Platelet Count 171 x1000/uL (130-400); White Blood Cell Count 5.85 k/cumm (4.4-10.8)
[2019-02-12 08:25] LABS: ALT 16 U/L (12-78); AST 10 U/L (15-37); Albumin 3.3 g/dL (3.4-5.0); Alkaline Phosphatase 51 U/L (46-116); Anion Gap 10.8 mmol/L (3-11); BUN 18 mg/dL (7-18); Bilirubin, Total 1.1 mg/dL (0.2-1.0); CO2 24.2 mmol/L (21.0-32.0); CREATININE 1.19 mg/dL (0.70-1.30); Calcium 9.2 mg/dL (8.5-10.1); Chloride 104 mmol/L (98-107); Glucose 110 mg/dL (70-100); Potassium 4.4 mmol/L (3.5-5.1); Sodium 139 mmol/L (136-145); Total Protein 6.6 g/dL (6.4-8.2)
[2019-02-26 08:23] LABS: HCT 34.7 % (40.0-50.0); HGB 11.2 g/dL (13.5-17.5); Mean Corp. HGB Concentration 32.3 g/dL (32.0-36.0); Mean Corpuscular Hemoglobin 29.1 pg (27.0-33.0); Mean Corpuscular Volume 90.1 fL (80-95); Mean Platelet Volume 10.1 fL (8.0-11.0); RBC 3.85 m/cumm (4.50-6.00); RBC Distribution Width 18.7 % (11.8-14.1); White Blood Cell Count 3.97 k/cumm (4.4-10.8)
[2019-02-26 08:37] LABS: ALT 18 U/L (12-78); AST 19 U/L (15-37); Albumin 3.2 g/dL (3.4-5.0); Alkaline Phosphatase 62 U/L (46-116); Anion Gap 12.1 mmol/L (3-11); BUN 19 mg/dL (7-18); Bilirubin, Total 0.8 mg/dL (0.2-1.0); CO2 25.9 mmol/L (21.0-32.0); CREATININE 1.22 mg/dL (0.70-1.30); Calcium 8.7 mg/dL (8.5-10.1); Chloride 104 mmol/L (98-107); Estimated GFR 57.91 (mL/min/1.73m2); Glucose 98 mg/dL (70-100); Potassium 3.9 mmol/L (3.5-5.1); Sodium 142 mmol/L (136-145); Total Protein 6.6 g/dL (6.4-8.2)
[2019-02-26 08:51] LABS: Absolute Neutrophil Count 1.99 k/cumm (1.2-6.7); Atypical Lymphocytes % 1
[2019-02-26 08:52] LABS: Absolute Basophil Count 0.08 k/cumm (0.0-0.2); Absolute Monocyte Count 1.11 k/cumm (0.11-0.7); Anisocytosis 3+; Diff Comment Manual Differential; Polychromasia Present
[2019-02-26 08:53] LABS: Platelet Count 398 x1000/uL (130-400); Poikilocytes 3+
[2019-02-26] MEDS: Normal Saline Flush 10 ML SYR IVP (09:54)
[2019-02-27 10:18] LABS: IgA 355 mg/dL (85-499); IgG 520 mg/dL (610-1616); IgM <12 mg/dL (35-242); Kappa Free Light Chain 0.79 mg/dl (0.33-1.94); Lambda Free Light Chain <0.44 mg/dl (0.57-2.63)
[2019-02-27 14:34] LABS: Albumin 56.3 % (55.8-66.1); Monoclonal Spike 4.8 %; Total Protein 6.1 g/dl (6.3-8.2)
== END 2019-03-09 23:59 | disposition home or self-care (01) ==
LOC: INF 01:06
PROVIDERS: PCP Family Medicine; Visit Provider Internal Medicine Hematology & Oncology
DX: C90.00 Multiple myeloma not having achieved remission (principal); Z45.2 Encounter for adjustment and management of vascular access device
CPT/HCPCS: 36591; 80053; 82784; 83883; 84165; 85025

== ENCOUNTER 2019-04-09 01:29 | Outpatient (RCR) | payer MEDICARE, OTHER, SELFPAY ==
[2019-03-12] MEDS: Normal Saline Flush 10 ML SYR IVP (07:16)
[2019-03-12 07:24] LABS: Abs Immature Grans 0.04 k/cumm (0.0-0.09); Absolute Basophil Count 0.15 k/cumm (0.0-0.2); Absolute Eosinophil Count 0.19 k/cumm (0.0-0.7); Absolute Lymphocyte Count 0.75 k/cumm (1.2-3.4); Basophils % 3.1; Eosinophils % 3.9; HCT 32.1 % (40.0-50.0); HGB 10.5 g/dL (13.5-17.5); Immature Grans % 0.8; Lymphocytes % 15.5; Mean Corp. HGB Concentration 32.7 g/dL (32.0-36.0); Mean Corpuscular Hemoglobin 29.2 pg (27.0-33.0); Mean Corpuscular Volume 89.4 fL (80-95); Monocytes % 12.4; Neutrophils % 64.3; RBC 3.59 m/cumm (4.50-6.00); RBC Distribution Width 18.7 % (11.8-14.1); White Blood Cell Count 4.83 k/cumm (4.4-10.8)
[2019-03-12 07:33] LABS: ALT 13 U/L (12-78); AST 13 U/L (15-37); Albumin 3.2 g/dL (3.4-5.0); Alkaline Phosphatase 58 U/L (46-116); Anion Gap 13.1 mmol/L (3-11); BUN 17 mg/dL (7-18); Bilirubin, Total 1.3 mg/dL (0.2-1.0); CO2 25.9 mmol/L (21.0-32.0); CREATININE 1.22 mg/dL (0.70-1.30); Calcium 9.1 mg/dL (8.5-10.1); Chloride 107 mmol/L (98-107); Estimated GFR 57.91 (mL/min/1.73m2); Glucose 101 mg/dL (70-100); Potassium 3.7 mmol/L (3.5-5.1); Sodium 146 mmol/L (136-145); Total Protein 6.6 g/dL (6.4-8.2)
[2019-03-12 07:47] LABS: Platelet Count 129 x1000/uL (130-400)
[2019-03-12 07:48] LABS: Anisocytosis 3+; Diff Comment RBC Morph Reviewed; Macrocytosis 1+; Microcytosis 2+; Ovalocytes 2+; Polychromasia Present
[2019-03-12 07:49] LABS: Poikilocytes 2+
[2019-03-26] MEDS: Normal Saline Flush 10 ML SYR IVP (10:00)
[2019-03-26 10:31] LABS: Abs Immature Grans 0.02 k/cumm (0.0-0.09); Absolute Basophil Count 0.06 k/cumm (0.0-0.2); Absolute Eosinophil Count 0.19 k/cumm (0.0-0.7); Absolute Lymphocyte Count 0.88 k/cumm (1.2-3.4); Absolute Monocyte Count 0.98 k/cumm (0.11-0.7); Absolute Neutrophil Count 1.71 k/cumm (1.2-6.7); Basophils % 1.6; Eosinophils % 4.9; HGB 10.6 g/dL (13.5-17.5); Immature Grans % 0.5; Lymphocytes % 22.9; Mean Corp. HGB Concentration 31.2 g/dL (32.0-36.0); Mean Corpuscular Hemoglobin 29.3 pg (27.0-33.0); Mean Corpuscular Volume 93.9 fL (80-95); Mean Platelet Volume 10.4 fL (8.0-11.0); Monocytes % 25.5; Neutrophils % 44.6; Platelet Count 445 x1000/uL (130-400); RBC 3.62 m/cumm (4.50-6.00); RBC Distribution Width 20.6 % (11.8-14.1); White Blood Cell Count 3.84 k/cumm (4.4-10.8)
[2019-03-26 10:44] LABS: ALT 16 U/L (12-78); AST 14 U/L (15-37); Albumin 3.2 g/dL (3.4-5.0); Alkaline Phosphatase 57 U/L (46-116); Anion Gap 12.4 mmol/L (3-11); BUN 17 mg/dL (7-18); Bilirubin, Total 1.3 mg/dL (0.2-1.0); CO2 23.6 mmol/L (21.0-32.0); CREATININE 1.24 mg/dL (0.70-1.30); Calcium 9.1 mg/dL (8.5-10.1); Chloride 108 mmol/L (98-107); Estimated GFR 56.83 (mL/min/1.73m2); Glucose 102 mg/dL (70-100); Potassium 4.1 mmol/L (3.5-5.1); Sodium 144 mmol/L (136-145); Total Protein 6.6 g/dL (6.4-8.2)
[2019-03-27 10:14] LABS: IgA 504 mg/dL (85-499); IgG 369 mg/dL (610-1616); IgM <12 mg/dL (35-242); Kappa Free Light Chain 0.87 mg/dl (0.33-1.94); Lambda Free Light Chain <0.44 mg/dl (0.57-2.63)
[2019-03-27 13:46] LABS: Albumin 56.5 % (55.8-66.1); Monoclonal Spike 5.7 %; Total Protein 5.9 g/dl (6.3-8.2)
[2019-04-09 09:18] LABS: Abs Immature Grans 0.03 k/cumm (0.0-0.09); Absolute Basophil Count 0.16 k/cumm (0.0-0.2); Absolute Eosinophil Count 0.27 k/cumm (0.0-0.7); Absolute Lymphocyte Count 0.54 k/cumm (1.2-3.4); Absolute Monocyte Count 0.43 k/cumm (0.11-0.7); Absolute Neutrophil Count 1.83 k/cumm (1.2-6.7); Basophils % 4.9; Eosinophils % 8.3; HCT 32.1 % (40.0-50.0); HGB 10.2 g/dL (13.5-17.5); Immature Grans % 0.9; Lymphocytes % 16.6; Mean Corp. HGB Concentration 31.8 g/dL (32.0-36.0); Mean Corpuscular Hemoglobin 29.7 pg (27.0-33.0); Mean Corpuscular Volume 93.3 fL (80-95); Mean Platelet Volume 11.7 fL (8.0-11.0); Monocytes % 13.2; Neutrophils % 56.1; Platelet Count 234 x1000/uL (130-400); RBC 3.44 m/cumm (4.50-6.00); RBC Distribution Width 19.8 % (11.8-14.1); White Blood Cell Count 3.26 k/cumm (4.4-10.8)
[2019-04-09] MEDS: Normal Saline Flush 10 ML SYR IVP (09:21)
[2019-04-09 09:38] LABS: ALT 14 U/L (12-78); AST 11 U/L (15-37); Alkaline Phosphatase 54 U/L (46-116); Anion Gap 12.7 mmol/L (3-11); BUN 25 mg/dL (7-18); CO2 23.3 mmol/L (21.0-32.0); CREATININE 1.81 mg/dL (0.70-1.30); Calcium 9.7 mg/dL (8.5-10.1); Chloride 108 mmol/L (98-107); Estimated GFR 36.73 (mL/min/1.73m2); Glucose 110 mg/dL (70-100); Potassium 3.9 mmol/L (3.5-5.1); Sodium 144 mmol/L (136-145); Total Protein 6.6 g/dL (6.4-8.2)
[2019-04-09 09:48] LABS: Anisocytosis 3+; Diff Comment RBC Morph Reviewed
[2019-04-09 14:40] LABS: Poikilocytes 2+
== END 2019-04-09 23:59 | disposition home or self-care (01) ==
LOC: INF 01:29
PROVIDERS: PCP Family Medicine; Visit Provider Internal Medicine Hematology & Oncology
DX: C90.00 Multiple myeloma not having achieved remission (principal); Z45.2 Encounter for adjustment and management of vascular access device
CPT/HCPCS: 36591; 80053; 82784; 83883; 84165; 85025

== ENCOUNTER 2019-05-07 02:25 | Outpatient (RCR) | payer MEDICARE, OTHER, SELFPAY ==
[2019-04-23] MEDS: Normal Saline Flush 10 ML SYR IVP (08:16)
[2019-04-23 08:29] LABS: Abs Immature Grans 0.01 k/cumm (0.0-0.09); Absolute Basophil Count 0.14 k/cumm (0.0-0.2); Absolute Eosinophil Count 0.14 k/cumm (0.0-0.7); Absolute Lymphocyte Count 0.63 k/cumm (1.2-3.4); Absolute Monocyte Count 0.93 k/cumm (0.11-0.7); Absolute Neutrophil Count 1.92 k/cumm (1.2-6.7); Basophils % 3.7; Eosinophils % 3.7; HCT 30.9 % (40.0-50.0); HGB 9.7 g/dL (13.5-17.5); Immature Grans % 0.3; Lymphocytes % 16.7; Mean Corp. HGB Concentration 31.4 g/dL (32.0-36.0); Mean Corpuscular Hemoglobin 29.7 pg (27.0-33.0); Mean Corpuscular Volume 94.5 fL (80-95); Mean Platelet Volume 9.6 fL (8.0-11.0); Monocytes % 24.7; Neutrophils % 50.9; RBC 3.27 m/cumm (4.50-6.00); White Blood Cell Count 3.77 k/cumm (4.4-10.8)
[2019-04-23 08:52] LABS: Anisocytosis 2+; Diff Comment RBC Morph Reviewed; Poikilocytes 2+; Polychromasia Present
[2019-04-23 08:53] LABS: Platelet Count 246 x1000/uL (130-400)
[2019-04-23 08:59] LABS: ALT 14 U/L (12-78); AST 16 U/L (15-37); Alkaline Phosphatase 55 U/L (46-116); Anion Gap 13.6 mmol/L (3-11); BUN 22 mg/dL (7-18); Bilirubin, Total 1.5 mg/dL (0.2-1.0); CO2 22.4 mmol/L (21.0-32.0); CREATININE 1.52 mg/dL (0.70-1.30); Calcium 8.6 mg/dL (8.5-10.1); Chloride 107 mmol/L (98-107); Estimated GFR 44.93 (mL/min/1.73m2); Glucose 131 mg/dL (70-100); Potassium 4.1 mmol/L (3.5-5.1); Sodium 143 mmol/L (136-145); Total Protein 6.4 g/dL (6.4-8.2)
[2019-04-24 10:00] LABS: Lambda Free Light Chain <0.44 mg/dl (0.57-2.63)
[2019-04-24 10:07] LABS: IgA 786 mg/dL (85-499); IgG 273 mg/dL (610-1616); IgM <12 mg/dL (35-242)
[2019-04-24 13:49] LABS: Albumin 55.9 % (55.8-66.1); Monoclonal Spike 9.2 %; Total Protein 6.1 g/dl (6.3-8.2)
[2019-05-07] MEDS: Normal Saline Flush 10 ML SYR IVP (08:10)
[2019-05-07 08:29] LABS: Abs Immature Grans 0.03 k/cumm (0.0-0.09); Absolute Eosinophil Count 0.16 k/cumm (0.0-0.7); Absolute Lymphocyte Count 0.43 k/cumm (1.2-3.4); Absolute Monocyte Count 0.43 k/cumm (0.11-0.7); Absolute Neutrophil Count 1.61 k/cumm (1.2-6.7); Basophils % 3.6; Eosinophils % 5.8; HCT 29.9 % (40.0-50.0); HGB 9.2 g/dL (13.5-17.5); Immature Grans % 1.1; Lymphocytes % 15.6; Mean Corp. HGB Concentration 30.8 g/dL (32.0-36.0); Mean Corpuscular Hemoglobin 30.1 pg (27.0-33.0); Mean Corpuscular Volume 97.7 fL (80-95); Mean Platelet Volume 11.7 fL (8.0-11.0); Monocytes % 15.6; Neutrophils % 58.3; RBC 3.06 m/cumm (4.50-6.00); RBC Distribution Width 22.4 % (11.8-14.1); White Blood Cell Count 2.76 k/cumm (4.4-10.8)
[2019-05-07 09:08] LABS: ALT 15 U/L (16-63); AST 12 U/L (15-37); Albumin 2.9 g/dL (3.4-5.0); Alkaline Phosphatase 53 U/L (46-116); Anion Gap 11.8 mmol/L (3-11); BUN 31 mg/dL (7-18); Bilirubin, Total 1.3 mg/dL (0.2-1.0); CO2 25.2 mmol/L (21.0-32.0); CREATININE 1.79 mg/dL (0.70-1.30); Calcium 10.1 mg/dL (8.5-10.1); Calculated LDL 36 mg/dL; Chloride 107 mmol/L (98-107); Cholesterol 75 mg/dL (50-200); Estimated GFR 37.21 (mL/min/1.73m2); Glucose 124 mg/dL (70-100); HDL Cholesterol 21 mg/dL (40-60); Potassium 4.7 mmol/L (3.5-5.1); Sodium 144 mmol/L (136-145); Total Protein 6.4 g/dL (6.4-8.2); Triglyceride 91 mg/dL (30-150); Vitamin B12 > 2000 pg/mL (193-986)
[2019-05-07 09:14] LABS: Anisocytosis 2+; Diff Comment RBC Morph Reviewed
[2019-05-07 09:15] LABS: Platelet Count 265 x1000/uL (130-400); Poikilocytes 2+
[2019-05-07 09:16] LABS: Uric Acid 6.4 mg/dL (3.5-7.2)
[2019-05-07 09:24] LABS: Hemoglobin A1C 5.9 % (4.5-6.2)
== END 2019-05-10 23:59 | disposition home or self-care (01) ==
LOC: INF 02:25
PROVIDERS: PCP Family Medicine; Visit Provider Internal Medicine Hematology & Oncology
DX: C90.00 Multiple myeloma not having achieved remission (principal); Z45.2 Encounter for adjustment and management of vascular access device; E11.9 Type 2 diabetes mellitus without complications; Z79.84 Long term (current) use of oral hypoglycemic drugs
CPT/HCPCS: 36591; 80053; 80061; 82784; 83721; 82607; 83036; 83883; 84165; 84550; 85025

== ENCOUNTER 2019-05-21 01:10 | Outpatient (RCR) | payer MEDICARE, OTHER, SELFPAY ==
[2019-05-21] MEDS: Normal Saline Flush 10 ML SYR IVP (08:24)
[2019-05-21 08:33] LABS: Abs Immature Grans 0.02 k/cumm (0.0-0.09); Absolute Basophil Count 0.07 k/cumm (0.0-0.2); Absolute Eosinophil Count 0.18 k/cumm (0.0-0.7); Absolute Lymphocyte Count 0.52 k/cumm (1.2-3.4); Absolute Monocyte Count 0.68 k/cumm (0.11-0.7); Absolute Neutrophil Count 2.52 k/cumm (1.2-6.7); Basophils % 1.8; Eosinophils % 4.5; HCT 27.3 % (40.0-50.0); HGB 8.4 g/dL (13.5-17.5); Immature Grans % 0.5; Mean Corp. HGB Concentration 30.8 g/dL (32.0-36.0); Mean Corpuscular Hemoglobin 30.3 pg (27.0-33.0); Mean Corpuscular Volume 98.6 fL (80-95); Mean Platelet Volume 8.8 fL (8.0-11.0); Neutrophils % 63.2; Platelet Count 269 x1000/uL (130-400); RBC 2.77 m/cumm (4.50-6.00); RBC Distribution Width 22.9 % (11.8-14.1); White Blood Cell Count 3.99 k/cumm (4.4-10.8)
[2019-05-21 08:52] LABS: ALT 14 U/L (16-63); AST 22 U/L (15-37); Alkaline Phosphatase 63 U/L (46-116); Anion Gap 12.6 mmol/L (3-11); BUN 14 mg/dL (7-18); Bilirubin, Total 1.5 mg/dL (0.2-1.0); CO2 24.4 mmol/L (21.0-32.0); CREATININE 1.21 mg/dL (0.70-1.30); Calcium 9.1 mg/dL (8.5-10.1); Chloride 107 mmol/L (98-107); Estimated GFR 58.46 (mL/min/1.73m2); Glucose 81 mg/dL (70-100); Potassium 3.1 mmol/L (3.5-5.1); Sodium 144 mmol/L (136-145); Total Protein 6.8 g/dL (6.4-8.2)
[2019-05-21 09:03] LABS: Anisocytosis 3+; Basophilic Stippling Present; Diff Comment RBC Morph Reviewed; Hypochromasia 2+; Macrocytosis 1+; Microcytosis 1+; Polychromasia Present; Schistocytes 1+; Spherocytes 1+
[2019-05-21 09:04] LABS: Poikilocytes 2+
[2019-05-22 11:18] LABS: IgA 1086 mg/dL (85-499); IgG 215 mg/dL (610-1616); IgM <12 mg/dL (35-242); Kappa Free Light Chain 1.22 mg/dl (0.33-1.94); Lambda Free Light Chain <0.44 mg/dl (0.57-2.63)
[2019-05-22 15:00] LABS: Albumin 52.1 % (55.8-66.1); Comment SEE COMMENTS; Monoclonal Spike 12.9 %; Total Protein 6.4 g/dl (6.3-8.2)
[2019-05-22 15:42] LABS: Immunotyping, Serum Interpretation:
== END 2019-06-09 23:59 | disposition home or self-care (01) ==
LOC: INF 01:10
PROVIDERS: PCP Family Medicine; Visit Provider Internal Medicine Hematology & Oncology
DX: C90.00 Multiple myeloma not having achieved remission (principal); Z45.2 Encounter for adjustment and management of vascular access device
CPT/HCPCS: 36591; 80053; 82784; 83883; 84165; 85025; 86320

== ENCOUNTER 2019-06-12 08:34 | Outpatient (RCR) | payer MEDICARE, OTHER, SELFPAY ==
[2019-06-12] MEDS: Normal Saline Flush 10 ML SYR IVP (08:40)
[2019-06-12 09:12] LABS: Abs Immature Grans 0.15 k/cumm (0.0-0.09); Absolute Basophil Count 0.01 k/cumm (0.0-0.2); Absolute Eosinophil Count 0.02 k/cumm (0.0-0.7); Absolute Lymphocyte Count 0.57 k/cumm (1.2-3.4); Absolute Monocyte Count 1.12 k/cumm (0.11-0.7); Absolute Neutrophil Count 7.65 k/cumm (1.2-6.7); Basophils % 0.1; Eosinophils % 0.2; HCT 28.2 % (40.0-50.0); HGB 8.8 g/dL (13.5-17.5); Immature Grans % 1.6; Mean Corp. HGB Concentration 31.2 g/dL (32.0-36.0); Mean Corpuscular Hemoglobin 31.2 pg (27.0-33.0); Monocytes % 11.8; Neutrophils % 80.3; RBC 2.82 m/cumm (4.50-6.00); RBC Distribution Width 21.8 % (11.8-14.1); White Blood Cell Count 9.52 k/cumm (4.4-10.8)
[2019-06-12 09:30] LABS: Platelet Count 125 x1000/uL (130-400)
[2019-06-12 09:31] LABS: Anisocytosis 3+; Diff Comment RBC Morph Reviewed; Hypochromasia 1+; Macrocytosis 2+; Microcytosis 1+; Ovalocytes 2+; Polychromasia Present
[2019-06-12 09:32] LABS: Poikilocytes 2+
[2019-06-12 09:33] LABS: ALT 27 U/L (16-63); AST 136 U/L (15-37); Albumin 3.1 g/dL (3.4-5.0); Alkaline Phosphatase 74 U/L (46-116); Anion Gap 13.4 mmol/L (3-11); BUN 36 mg/dL (7-18); Bilirubin, Total 0.6 mg/dL (0.2-1.0); CO2 21.6 mmol/L (21.0-32.0); Calcium 8.3 mg/dL (8.5-10.1); Chloride 105 mmol/L (98-107); Estimated GFR 59.02 (mL/min/1.73m2); Glucose 137 mg/dL (70-100); Potassium 4.5 mmol/L (3.5-5.1); Sodium 140 mmol/L (136-145); Total Protein 7.2 g/dL (6.4-8.2)
[2019-06-13 10:41] LABS: IgA 1398 mg/dL (85-499); IgG 174 mg/dL (610-1616); IgM <12 mg/dL (35-242); Kappa Free Light Chain 1.19 mg/dl (0.33-1.94); Lambda Free Light Chain <0.44 mg/dl (0.57-2.63)
[2019-06-13 13:45] LABS: Albumin 51.6 % (55.8-66.1); Monoclonal Spike 16.9 %
== END 2019-07-10 23:59 | disposition home or self-care (01) ==
LOC: INF 08:34
PROVIDERS: PCP Family Medicine; Visit Provider Internal Medicine Hematology & Oncology
DX: C90.00 Multiple myeloma not having achieved remission (principal); Z45.2 Encounter for adjustment and management of vascular access device
CPT/HCPCS: 36591; 80053; 82784; 83883; 84165; 85025; 86320